=== PATIENT | female | born 1960 | race Caucasian/White ===

== ENCOUNTER 2024-09-14 10:53 | Emergency (ER) | payer OTHER, SELFPAY ==
[2024-09-14 10:58] VITALS: BP 120/75; PULSE 79; RESP 16; TEMP 36.4; O2SAT 97; BMI 24.8
[2024-09-14 11:22] LABS: Bilirubin Urine Negative (Negative); Blood Urine Negative (Negative); Glucose Urine UA Negative (Normal); Ketones Urine Trace (Negative); Leukocyte Esterase Urine 1+ (Negative); Nitrate Urine Negative (Negative); Protein Urine Negative (Negative); Specific Gravity, Urine 1.018 (1.005-1.030); Urine Appearance Clear (CLEAR); Urine Color Dark Yellow (Yellow)
--- NOTE | 2024-09-14 11:26 | CTR_ITS ---
PROCEDURE INFORMATION: Exam: CT Abdomen And Pelvis Without Contrast Exam date and time: 09/14/2024 11:41 AM Age: 64 years old Clinical indication: Abdominal pain; Epigastric; Prior surgery; Surgery date: 6+ months; Surgery type: Appy hsyto; Additional info: Abd pain TECHNIQUE: Imaging protocol: Computed tomography of the abdomen and pelvis without contrast. Radiation optimization: All CT scans at this facility use at least one of these dose optimization techniques: automated exposure control; mA and/or kV adjustment per patient size (includes targeted exams where dose is matched to clinical indication); or iterative reconstruction. COMPARISON: No relevant prior studies available. RADIATION DOSE METRICS: Total DLP (mGy-cm): 586.9 FINDINGS: Lungs: Mild bibasilar atelectasis. Liver: Normal. No mass. Gallbladder and biliary ducts: Normal. No calcified stones. No ductal dilation. Pancreas: The pancreas is mildly atrophic. No ductal dilatation. Spleen: Benign calcified splenic granulomas. Spleen is normal in size. Adrenal glands: Normal. No mass. Kidneys and ureters: Normal. No hydronephrosis. Stomach and bowel: Redundant sigmoid colon. Scattered colonic diverticula without evidence of acute diverticulitis. No evidence of bowel obstruction. Small to moderate scattered colonic stool. There appears to be a diverticulum along a loop of small bowel in the pelvis without associated inflammatory changes (for example series 5 image 34 and series 3, image 72). Appendix: No evidence of appendicitis. Intraperitoneal space: Unremarkable. No free air. No significant fluid collection. Vasculature: Calcified pelvic phleboliths which are also seen along the courses of the gonadal veins bilaterally. Lymph nodes: Unremarkable. No enlarged lymph nodes. Urinary bladder: Unremarkable as visualized. Reproductive: Uterus is not well assessed. Possible supracervical hysterectomy. No suspicious adnexal mass. Bones/joints: Unremarkable. No acute fracture. Soft tissues: Unremarkable. CT/CT abdomen pelvis wo con [id number] IMPRESSION: 1. No acute findings within the abdomen/pelvis. 2. Likely small bowel diverticulum in the pelvis without associated inflammatory changes. 3. Small to moderate scattered colonic stool can be seen with constipation. 4. Colonic diverticulosis without diverticulitis.
[2024-09-14 11:27] LABS: Add Urine Microscopic? YES; Bacteria Urine None Seen /hpf; Hyaline Casts Urine 1.21 /lpf; Squamous Epithelial Cell Urine 0-5 /hpf (0-5); WBC Urine 0-5 /hpf (0-5)
[2024-09-14 11:27] LABS: Basophils % 0.8 %; Eosinophils # 0.1 10^3/uL (0.0-0.8); Eosinophils % 1.5 %; Hematocrit 38.9 % (36-47); Lymphocytes # 1.3 10^3/uL (0.8-4.8); Lymphocytes % 24.6 %; Mean Corpuscular HGB Conc 32.4 g/dL (30-55); Mean Corpuscular Hemoglobin 30.4 pg (27-33); Mean Platelet Volume 9.5 fL (7.4-10.4); Monocytes # 0.4 10^3/uL (0.2-0.9); Monocytes % 7.8 %; Neutrophils # 3.43 10^3/uL (1.8-7.7); Neutrophils % 64.9 %; Nucleated Red Blood Cells % 0 %; Platelet Count 246 10^3/cmm (157-399); Red Blood Count 4.14 10^6/uL (3.85-5.65); Red Cell Distribution Width 14.5 % (12.1-15.1); White Blood Count 5.28 10^3/uL (3.29-11.43)
[2024-09-14 11:45] LABS: Alanine Aminotransferase 9 U/L (0-33); Albumin Level 3.8 g/dL (3.5-5.2); Alkaline Phosphatase 82 U/L (35-105); Anion Gap 12.1 (5-19); Aspartate Amino Transferase 17 U/L (0-32); Blood Urea Nitrogen 9 mg/dL (8-23); Calcium 9.2 mg/dL (8.5-10.5); Carbon Dioxide 27 mmol/L (22-29); Chloride 105 mmol/L (98-107); Creatinine Clr Calc Pharmacy 133.4995; Glucose 105 mg/dL (65-115); Lipase 40 U/L (13-60); Osmolality Calculated 289 mOsm/kg (285-295); Potassium 4.1 mmol/L (3.5-5.1); Sodium 140 mmol/L (136-145); Total Bilirubin 0.7 mg/dL (0.15-1.2); Total Protein 7.8 g/dL (6.6-8.7)
[2024-09-14] MEDS: HYDROmorphone 0.5 MG/0.5 ML INJ IVP (11:48)
[2024-09-14] MEDS: ondansetron 2 mg/ML SDV 2 mL 4 MG IVP (11:48)
[2024-09-14] MEDS: sodium chloride 0.9% 1,000 ML 999 ML IV (11:49)
--- NOTE | 2024-09-14 12:21 | W.ED.ABDPA2 ---
HPI - Abdominal Pain General: Chief Complaint: Abdominal Pain Stated Complaint: abd pain Time Seen by Provider: 09/14/24 11:16 History of Present Illness: This patient is a 64-year-old white female who presents to the emergency department complaining of diffuse abdominal pain. Patient states that she was recently diagnosed with gallstones and is scheduled for a cholecystectomy on October 01 at [facility]. Over the past few days she has developed more of a diffuse abdominal pain associate with nausea and diarrhea. No fever. No vomiting. No dysuria. Past medical history includes DVTs, hypercholesterolemia and GERD. Past surgical history includes an appendectomy. She does not smoke or drink. Associated Symptoms: Reports diarrhea and nausea Related Data Previous Rx's ?Medication ?Instructions ?Recorded dicyclomine 20 mg tablet 20 mg PO QID PRN abdominal pain 09/14/24 #20 tabs ondansetron 4 mg disintegrating 4 mg PO Q4H PRN nausea and 09/14/24 tablet vomiting #20 tabs Allergies Allergy/AdvReac Type Severity Reaction Status Date / Time Penicillins Allergy ALGY-Anaphy Verified 09/14/24 10:58 laxis Review of Systems General: Reports: 10 or more systems reviewed and unremarkable except in HPI and below GI: Reports: abdominal pain, nausea and diarrhea Physical Exam Const: COMMON NORMALS: patient oriented x3 and no limitations GENERAL APPEARANCE: cooperative HENMT: COMMON NORMALS: normocephalic, atraumatic, Normal nasal mucous membranes and turbinates present, moist oral mucous membranes and oropharynx normal HEAD & SCALP: normal to inspection, normocephalic and atraumatic FACE & SINUS: normal facial exam NOSE: Normal nasal mucous membranes and turbinates present Eye: COMMON NORMALS: Equal, round and reactive pupils present, EOMs intact bilaterally and conjunctivae normal GENERAL EYE: appearance normal, both eyes and all related structures CONJUNCTIVA: Yes conjunctivae normal PUPIL: Yes Equal, round and reactive pupils present Neck/C-Spine: COMMON NORMALS: supple and no JVD Chest: COMMONS NORMALS: normal inspection of the chest Resp: COMMON NORMALS: normal respiratory effort and clear to auscultation bilaterally AUSCULTATION: clear to auscultation bilaterally Cardio: COMMON NORMALS: no JVD, regular rate, regular rhythm, No gallops present (Cardio), No murmurs present (Cardio) and No rub (Cardio) RATE: regular rate RHYTHM: regular rhythm GI: COMMON NORMALS: Soft to palpation AUSCULTATION: Yes normoactive bowel sounds PALPATION: Yes Soft to palpation and Yes Tenderness to palpation present (GI) (mild, diffuse) : COMMON NORMALS: Yes no CVA tenderness BLADDER/KIDNEY EXAM: Yes no CVA tenderness Back/Pelvis: COMMON NORMALS: no CVA tenderness and thoracic and lumbar spine normal to inspection Extremity: COMMON NORMALS: normal to inspection Neuro: COMMON NORMALS: patient oriented x3 and CN's II-XII intact bilaterally Psych: COMMON NORMALS: mental status grossly normal, Normal thought process present and cooperative THOUGHT PROCESS: Normal thought process present Skin: COMMON NORMALS: no rashes or lesions noted, turgor normal and no jaundice GENERAL SKIN EXAM: no rashes or lesions noted and turgor normal Course Vital Signs: Vital signs: Vital Signs Temperature 97.6 F 09/14/24 10:58 Pulse Rate 79 09/14/24 10:58 Respiratory Rate 16 09/14/24 10:58 Blood Pressure 120/75 09/14/24 10:58 Pulse Oximetry 97 09/14/24 10:58 Oxygen Delivery Me thod Room Air 09/14/24 10:58 MDM - Abdominal Pain Medical Decision Making CBC, CMP and lipase were normal. Urine analysis normal. CT scan of the abdomen and pelvis was read by the radiologist as normal. Patient was given IV fluids, Dilaudid and Zofran. She is feeling better. Her symptoms currently appear to be secondary to gastroenteritis. I did place her on Zofran and Bentyl. Recommended she push clear liquids only until symptoms subside then advance diet slowly. Follow-up with primary care physician later this week if no improvement. She was discharged in stable condition. Lab Data 09/14/24 11:20 09/14/24 11:20 Labs/Radiology: Radiology Impressions Abdomen/Pelvis CT 09/14/24 11:26 IMPRESSION: 1. No acute findings within the abdomen/pelvis. 2. Likely small bowel diverticulum in the pelvis without associated inflammatory changes. 3. Small to moderate scattered colonic stool can be seen with constipation. 4. Colonic diverticulosis without diverticulitis. Laboratory Results WBC 5.28 10^3/uL (3.29-11.43) 09/14/24 11:20 RBC 4.14 10^6/uL (3.85-5.65) 09/14/24 11:20 Hgb 12.60 g/dL (11.27-16.99) 09/14/24 11:20 Hct 38.9 % (36-47) 09/14/24 11:20 MCV 94.0 fl (85-98) 09/14/24 11:20 MCH 30.4 pg (27-33) 09/14/24 11:20 MCHC 32.4 g/dL (30-55) 09/14/24 11:20 RDW 14.5 % (12.1-15.1) 09/14/24 11:20 Plt Count 246 10^3/cmm (157-399) 09/14/24 11:20 MPV 9.5 fL (7.4-10.4) 09/14/24 11:20 Neut % (Auto) 64.9 % 09/14/24 11:20 Lymph % (Auto) 24.6 % 09/14/24 11:20 [place] % (Auto) 7.8 % 09/14/24 11:20 Eos % (Auto) 1.5 % 09/14/24 11:20 Baso % (Auto) 0.8 % 09/14/24 11:20 Neut # (Auto) 3.43 10^3/uL (1.8-7.7) 09/14/24 11:20 Lymph # (Auto) 1.3 10^3/uL (0.8-4.8) 09/14/24 11:20 [place] # (Auto) 0.4 10^3/uL (0.2-0.9) 09/14/24 11:20 Eos # (Auto) 0.1 10^3/uL (0.0-0.8) 09/14/24 11:20 Baso # (Auto) 0.0 10^3/uL (0.0-0.1) 09/14/24 11:20 Nucleated RBC % (auto) 0 % 09/14/24 11:20 Nucleated RBCs # 0.0 /100WBC 09/14/24 11:20 Sodium 140 mmol/L (136-145) 09/14/24 11:20 Potassium 4.1 mmol/L (3.5-5.1) 09/14/24 11:20 Chloride 105 mmol/L (98-107) 09/14/24 11:20 Carbon Dioxide 27 mmol/L (22-29) 09/14/24 11:20 Anion Gap 12.1 (5-19) 09/14/24 11:20 BUN 9 mg/dL (8-23) 09/14/24 11:20 Creatinine 0.5 mg/dL (0.5-0.9) 09/14/24 11:20 GFR Calculation 125.0 mL/min (90-130) 09/14/24 11:20 Glucose 105 mg/dL (65-115) 09/14/24 11:20 Calculated Osmolality 289 mOsm/kg (285-295) 09/14/24 11:20 Calcium 9.2 mg/dL (8.5-10.5) 09/14/24 11:20 Total Bilirubin 0.7 mg/dL (0.15-1.2) 09/14/24 11:20 AST 17 U/L (0-32) 09/14/24 11:20 ALT 9 U/L (0-33) 09/14/24 11:20 Alkaline Phosphatase 82 U/L (35-105) 09/14/24 11:20 Total Protein 7.8 g/dL (6.6-8.7) 09/14/24 11:20 Albumin 3.8 g/dL (3.5-5.2) 09/14/24 11:20 Globulin 4.0 g/dL (1.3-4.6) 09/14/24 11:20 Lipase 40 U/L (13-60) 09/14/24 11:20 Urine Color Dark yellow (Yellow) A 09/14/24 11:10 Urine Appearance Clear (CLEAR) 09/14/24 11:10 Urine pH 7.0 (5-7) 09/14/24 11:10 Ur Specific [place] 1.018 (1.005-1.030) 09/14/24 11:10 Urine Protein Negative (Negative) 09/14/24 11:10 Urine Glucose (UA) Negative (Normal) 09/14/24 11:10 Urine Ketones Trace (Negative) 09/14/24 11:10 Urine Blood Negative (Negative) 09/14/24 11:10 Urine Nitrate Negative (Negative) 09/14/24 11:10 Urine Bilirubin Negative (Negative) 09/14/24 11:10 Urine Urobilinogen 1.0 mg/dL (Negative) 09/14/24 11:10 Ur Leukocyte Esterase 1+ (Negative) A 09/14/24 11:10 Urine RBC 6-10 /hpf (0-2) 09/14/24 11:10 Urine WBC 0-5 /hpf (0-5) 09/14/24 11:10 Ur Squamous Epith Cells 0-5 /hpf (0-5) 09/14/24 11:10 Amorphous Sediment Not Reportable 09/14/24 11:10 Urine Bacteria None seen /hpf (NONE) 09/14/24 11:10 Hyaline Casts 1.21 /lpf 09/14/24 11:10 All radiology interpretation(s) finalized by discharge Discharge Plan Discharge Patient Disposition: Home Clinical Impression: Gastroenteritis Condition: Stable Prescriptions: New ondansetron 4 mg tablet,disintegrating 4 mg PO Q4H PRN (Reason: nausea and vomiting) Qty: 20 0RF dicyclomine 20 mg tablet 20 mg PO QID PRN (Reason: abdominal pain) Qty: 20 0RF Discharge Orders: Discharge ED (Routine); Ordered 09/14/24 Ordered By: Dez Matson Referrals: Jodie Haynes FNP [Primary Care Provider] Patient Instructions: Gastroenteritis (DC) Activity Restrictions/Additional Instructions: Push clear liquids only until symptoms subside then advance your diet slowly. Take the Zofran and Bentyl as prescribed. Follow-up with primary care physician in several days if no improvement. Print Language: Spanish Coding Level of Care Code ED Durable Medical Equipment Technician for Fili Thomas
[2024-09-14 13:11] VITALS: BP 119/72; PULSE 66; O2SAT 98
== END 2024-09-14 13:12 | disposition home or self-care (01) ==
PROVIDERS: Family Medicine; Emergency Provider Emergency Medicine; PCP Nurse Practitioner Family
DX: K52.9 Noninfective gastroenteritis and colitis, unspecified (principal)
CPT/HCPCS: 36415; 74176; 80053; 81001; 83690; 85025; 96361; 96374; 96375; 99285; J1171; J2405; J7030